=== PATIENT | male | born 1960 | race Hispanic/Latino ===

== ENCOUNTER 2022-10-17 14:18 | Emergency (ER) | payer OTHER ==
[~2022-10-17] VITALS: Ht 165.1 cm; Wt 70.3 kg
[2022-10-17] MEDS ORDERED: LORA10TA7 PO (17:46)
[2022-10-17 18:30] VITALS: BP 128/72
== END 2022-10-17 18:35 | disposition home or self-care (01) ==
LOC: EDH 14:18
DX: R09.81 Nasal congestion (principal); Z20.822 Contact with and (suspected) exposure to COVID-19
CPT/HCPCS: 99283; 87635; 87804 ×2; C9803